=== PATIENT | female | born 1995 | race African-American/Black ===

== ENCOUNTER 2022-05-21 13:38 | Outpatient (CLI) | payer OTHER, SELFPAY ==
--- NOTE | ~2022-05-21 | US_ITS ---
EXAMINATION: US OB <= 14 weeks fetus DATE: 05/21/2022 14:22 INDICATION: Encounter for supervision of normal . TECHNIQUE: Real-time transabdominal and transvaginal pelvic ultrasound was performed. COMPARISON: None. FINDINGS: TRANSABDOMINAL ULTRASOUND: The uterus measures 13.0 x 6.9 x 8.9 cm. TRANSVAGINAL ULTRASOUND: There is an intrauterine gestational sac. The crown rump length measur es 7.1 cm, and the biparietal diameter is 2.4 cm, which correlate with an estimated gestational age o f 13 weeks and 5 day(s) (+/-) 1 week(s) and 0 day(s). heart motion is identified measuring 150 beats per minute (bpm) by M-mode Doppler. The ovaries are not visualized. There is no free fluid in t he pelvis. IMPRESSION: 1. Single living intrauterine gestation with estimated date of delivery of 11/21/2022. Reviewed, dictated and finalized at location A. VATION ANALYST IMPRESSION: 1. Single living intrauterine gestation with estimated date of delivery of 10/25.
== END 2022-05-21 13:39 | disposition home or self-care (01) ==
LOC: ANHIMG 13:45
PROVIDERS: Visit Provider Physician Assistant
DX: Z34.90 Encounter for supervision of normal pregnancy, unspecified, unspecified trimester (principal)
CPT/HCPCS: 76801